=== PATIENT | female | born 1990 | race Hispanic/Latino ===

== ENCOUNTER 2018-12-19 14:33 | Emergency (ER) | payer OTHER ==
--- NOTE | 2018-12-19 15:59 | ED.PDOC ---
History of Present Illness - General Chief Complaint: Headache Stated Complaint: headache x2 weeks Time Seen by Provider: 12/19/18 15:30 Source: patient Exam Limitations: no limitations - History of Present Illness Initial Comments: Patient presents with a headache for two weeks. It was intermittent at first but became constant one week ago. It is in the right temporal area and sharp. Her right eyelid is also drooping. She says it is hard to close and open the right eye. Headache is non-radiating. No previous episodes. No photophobia/fever/N/V. No other complaints. Timing/Duration: other - 2 weeks Severity: moderate Improving Factors: nothing Worsening Factors: cold therapy Associated Symptoms: other - as in HPI Allergies/Adverse Reactions: Allergies NO KNOWN ALLERGY Allergy (Verified 12/19/18 14:49) Home Medications: Ambulatory Orders Ketorolac Tromethamine [Toradol Tabs] 10 mg PO Q6HRS PRN #12 tab 12/19/18 Promethazine Tab [Phenergan Tablet] 25 mg PO .Q4H PRN #12 tab 12/19/18 methylPREDNISolone TAB [Medrol Tab] 4 mg PO DAILY 12/19/18 Review of Systems - Review of Systems Constitutional: States: no symptoms reported EENTM: States: see HPI Respiratory: States: no symptoms reported Cardiology: States: no symptoms reported Gastrointestinal/Abdominal: States: no symptoms reported Genitourinary: States: no symptoms reported Musculoskeletal: States: no symptoms reported Skin: States: no symptoms reported Neurological: States: see HPI Endocrine: States: no symptoms reported Hematologic/Lymphatic: States: no symptoms reported Past Medical History (General) - Patient Medical History Hx Seizures: No Hx Stroke: No Hx Asthma: No Hx Cardiac Disorders: No Hx Thyroid Disease: No Hx Diabetes: No Surgical History: other - Social History Hx Tobacco Use: No Family Medical History - Family History Mother Family History: No Known Physical Exam - Physical Exam General Appearance: Alert Eye Exam: bilateral other - PERRLA. Right eyelid has 4/5 strength to closure and opening. 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 The other cranial nerves show no gross deficits. Skin Exam: normal color Lymphatic: no adenopathy Progress - Progress Progress: 12/19/18 16:59 Laboratory Tests 12/19/18 12/19/18 12/19/18 15:06 15:48 15:48 WBC 12.0 H RBC 4.90 Hgb 14.0 Hct 42.4 MCV 86.5 MCH 28.7 MCHC 33.1 RDW 13.4 Plt Count 374 MPV 8.1 Absolute Neuts (auto) 10.00 H Absolute Lymphs (auto) 1.70 Absolute Monos (auto) 0.20 Absolute Eos (auto) 0.00 Absolute Basos (auto) 0.10 Neutrophils % 83.6 H Lymphocytes % 14.4 L Monocytes % 1.5 L Eosinophils % 0.0 L Basophils % 0.5 Sodium 137 Potassium 4.0 Chloride 106 Carbon Dioxide 19 L Anion Gap 16.0 BUN 14 Creatinine 0.64 BUN/Creatinine Ratio 21.9 H Random Glucose 146 H Serum Osmolality 276.9 Calcium 9.3 Total Bilirubin 0.4 AST 33 ALT 34 Alkaline Phosphatase 69 Serum Total Protein 8.1 Albumin 4.2 Globulin 3.9 H Albumin/Globulin Ratio 1.1 Urine Color Urine Appearance Urine pH Ur Specific Timbo Urine Protein Urine Glucose (UA) Urine Ketones Urine Blood Urine Nitrite Urine Bilirubin Urine Urobilinogen Ur Leukocyte Esterase Urine RBC Urine WBC Ur Epithelial Cells Urine Bacteria Urine HCG, Qual Negative Urine Opiates Screen Urine Barbiturates Ur Phencyclidine Scrn U Amphetamin/Meth Scrn U Benzodiazepines Scrn U Cocaine Metab Screen U Cannabinoids Screen 12/19/18 12/19/18 15:48 15:48 WBC RBC Hgb Hct MCV MCH MCHC RDW Plt Count MPV Absolute Neuts (auto) Absolute Lymphs (auto) Absolute Monos (auto) Absolute Eos (auto) Absolute Basos (auto) Neutrophils % Lymphocytes % Monocytes % Eosinophils % Basophils % Sodium Potassium Chloride Carbon Dioxide Anion Gap BUN Creatinine BUN/Creatinine Ratio Random Glucose Serum Osmolality Calcium Total Bilirubin AST ALT Alkaline Phosphatase Serum Total Protein Albumin Globulin Albumin/Globulin Ratio Urine Color Yellow Urine Appearance Clear Urine pH 6.0 Ur Specific Timbo >= 1.030 Urine Protein Negative Urine Glucose (UA) Negative Urine Ketones Negative Urine Blood Trace-intact H Urine Nitrite Negative Urine Bilirubin Negative Urine Urobilinogen 0.2 Ur Leukocyte Esterase Negative Urine RBC 0-1 Urine WBC 1-3 Ur Epithelial Cells 3-5 Urine Bacteria Rare Urine HCG, Qual Urine Opiates Screen Negative Urine Barbiturates Negative Ur Phencyclidine Scrn Negative U Amphetamin/Meth Scrn Negative U Benzodiazepines Scrn Negative U Cocaine Metab Screen Negative U Cannabinoids Screen Negative CT head negative. Headache improved with toradol 30 mg IM and phenergan 25 mg po. 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 RX for phenergan and toradol given. Care instructions given. E.R. warnings given. Questions were elicited and answered. Patient voiced understanding and agreement with the plan. Departure - Departure Clinical Impression: Headache, Deshpande's palsy Disposition: Discharge to Home or Self Care Condition: Good Departure Forms: ED Discharge - Pt. Copy, Patient Portal Self Enrollment Instructions: DI for Headache, Deshpande's Palsy (DC) Diet: resume usual diet Activity: increase activity as tolerated Referrals: Cheng Barry MD [Primary Care Provider] - 1-2 Weeks Prescriptions: Ketorolac Tromethamine [Toradol Tabs] 10 mg PO Q6HRS PRN #12 tab PRN Reason: Headache Or Mild Pain Promethazine Tab [Phenergan Tablet] 25 mg PO .Q4H PRN #12 tab PRN Reason: Headache Or Mild Pain Home Medications: Ambulatory Orders Ketorolac Tromethamine [Toradol Tabs] 10 mg PO Q6HRS PRN #12 tab 12/19/18 Promethazine Tab [Phenergan Tablet] 25 mg PO .Q4H PRN #12 tab 12/19/18 methylPREDNISolone TAB [Medrol Tab] 4 mg PO DAILY 12/19/18 Additional Instructions: Take medication as prescribed. Do not drive after taking phenergan (promethazine). See your regular doctor next week if symptoms do not improve and inquire about a possible MRI of the head. Return to the E.R. for worsening or new symptoms or for temperature greater than 100.3. Critical Care Note - Critical Care Note Total Time (mins): 35
--- NOTE | 2018-12-19 16:10 | CT ---
EXAM DESCRIPTION: Head: Computed Tomography. CLINICAL HISTORY: headache for two weeks. Pain behind right eye with right eye swelling for 2 weeks. COMPARISON: None. TECHNIQUE: Non-helical axial scans through the skull and brain, at 5 x 20 mm intervals, non-contrast. Axial 2.5 x 20 mm reconstructions. Sagittal and coronal 2.0 mm reconstructions. Total Exam DLP: 859.97 mGy-cm. This exam was performed according to our departmental dose-optimization program which includes automated exposure control, adjustment of the mA and/or kV according to patient size and/or use of iterative reconstruction technique; to reduce radiation dose to as low as reasonably achievable (ALARA). FINDINGS: No hemorrhage, no mass-effect, and no midline shift. Normal condon-white matter differentiation no abnormal radiodense material in the brain parenchyma. Vascular calcifications not present; physiologic calcifications in the pineal gland and choroid plexus. Also in the superior falx. No effacement or displacement of the ventricles, CSF spaces, or subdural spaces. No extra axial fluid collection or hemorrhage. No gross abnormalities of the bony calvarium. Included paranasal sinuses and mastoid air cells are well - aerated. IMPRESSION: 1. No hemorrhage, no mass effect, no midline shift. Normal noncontrast CT scan of the head without IV contrast 2. CT scans are insensitive for detecting small CVAs in the first 24 hours after onset. Evaluation of the brain stem is also limited. If symptoms persist, consider NON-EMERGENT MRI scan of the brain with diffusion imaging. Electronically signed by: Devon Schneider MD 12/19/2018 4:09 PM CDT
[2018-12-19] MEDS: PROMETHAZINE HCL 25 MG TAB PO ONE (16:22)
[2018-12-19] MEDS: KETOROLAC TROMETHAMINE INJ 30 MG/ML VIAL IM ONE (16:22)
[2018-12-19 17:17] VITALS: BP 145/77; TEMP 98.2; O2SAT 99
== END 2018-12-19 17:17 | disposition home or self-care (01) ==
LOC: ER 14:33
DX: G51.0 Bell's palsy (principal); R51 Headache
CPT/HCPCS: 36415; 70450; 80053; 80307; 81001; 81025; 85025; J1885; Q0169

== ENCOUNTER → 2019-03-02 | Outpatient (CLI) | payer OTHER ==
--- NOTE | 2019-03-02 11:03 | RAD ---
EXAM DESCRIPTION: Foot,Left 3 Views CLINICAL HISTORY: 29 years, Female, PAIN IN LEFT FOOT COMPARISON: None TECHNIQUE: Three views left foot FINDINGS: There is no bone, joint, or soft tissue abnormality observed. There is no radiopaque foreign body. No focal soft tissue swelling or destructive process noted IMPRESSION: Negative left foot three views. Electronically signed by: Cheng Wolf MD 03/02/2019 11:01 AM CDT
== END ==
LOC: RAD 08:53
PROVIDERS: ATTEND Orthopaedic Surgery
DX: M79.672 Pain in left foot (principal)

== ENCOUNTER → 2019-03-04 | Outpatient (CLI) | payer OTHER ==
--- NOTE | 2019-03-04 13:36 | MRI ---
Study: MRI of the Left Foot. Indication: STRESS FRACTURE LEFT FOOT INITIAL ENCOUNTER FOR FRACTURE Technique: Multiplanar, multi sequence MRI of the left foot was obtained without intravenous contrast. Comparison: Radiographs March 02, 2019. Findings: No acute fracture identified. Lisfranc ligament intact. TMT joint alignment normal. No gross rupture of the distal portions of the flexor/extensor tendons. Mild inflammation suspected at the origin of the central cord plantar fascia with mild plantar fibromatosis distal to this site by 2 cm. No fascial rupture. Impression: No acute fracture of the left foot. Plantar fasciitis with mild plantar fibromatosis. No rupture. Electronically signed by: Narendra Oakley MD 03/04/2019 1:34 PM CDT
== END ==
LOC: MRI 07:56
PROVIDERS: ATTEND Orthopaedic Surgery
DX: M84.375A Stress fracture, left foot, initial encounter for fracture (principal); M72.2 Plantar fascial fibromatosis

== ENCOUNTER 2019-08-06 | Emergency (ER) | payer OTHER | END 2019-08-06 16:25 | disposition home or self-care (01) | DX: G43.009 Migraine without aura, not intractable, without status migrainosus (principal); J01.10 Acute frontal sinusitis, unspecified | CPT/HCPCS: J0780; J1885; J3475; J7030; J7050 ==